=== PATIENT | female | born 1960 | race African-American/Black ===

== ENCOUNTER 2018-10-05 01:19 | Emergency (ER) | payer SELFPAY ==
[2018-10-05] MEDS ORDERED: LISI-661 PO (01:23)
[2018-10-05] MEDS ORDERED: LEVO100 PO (01:23)
[2018-10-05] MEDS ORDERED: ASPIRIN 81 MG CHEWABLE TABLET PO ONE (02:00)
== END 2018-10-05 05:16 | disposition left against medical advice (07) ==
LOC: EMS 01:19
DX: R06.02 Shortness of breath (principal); Z53.21 Procedure and treatment not carried out due to patient leaving prior to being seen by health care provider
CPT/HCPCS: 93005